=== PATIENT | female | born 1960 | race Caucasian/White ===

== ENCOUNTER → 2025-05-31 13:12 | Outpatient (BNVA) | payer MEDICARE, SELFPAY | PROVIDERS: PCP Family Medicine; Referring Provider Family Medicine; Visit Provider Podiatrist | DX: E11.42 Type 2 diabetes mellitus with diabetic polyneuropathy (principal); E11.22 Type 2 diabetes mellitus with diabetic chronic kidney disease; N18.4 Chronic kidney disease, stage 4 (severe); L84 Corns and callosities; M79.672 Pain in left foot; M21.611 Bunion of right foot; M21.612 Bunion of left foot; M67.01 Short Achilles tendon (acquired), right ankle; M67.02 Short Achilles tendon (acquired), left ankle; R60.0 Localized edema; R23.8 Other skin changes; L85.8 Other specified epidermal thickening; L65.9 Nonscarring hair loss, unspecified; I83.93 Asymptomatic varicose veins of bilateral lower extremities | CPT/HCPCS: 99203; 11056 ==